=== PATIENT | male | born 1950 | race Caucasian/White ===

== ENCOUNTER 2022-03-17 11:37 | Emergency (ER) | payer OTHER ==
[2022-03-17 12:07] VITALS: BP 144/62; PULSE 64; TEMP 98; BMI 25.8
[2022-03-17] MEDS ORDERED: KETOROLAC TROMETHAMINE 30 MG/1 ML VIAL IVPUSH ONE (13:22)
[2022-03-17] MEDS ORDERED: SODIUM CHLORIDE 0.9% 500 ML INFUS.BAG IV ONE (13:22)
[2022-03-17] MEDS ORDERED: ONDANSETRON 4 MG/2 ML VIAL IVPUSH ONE (13:23)
[2022-03-17] MEDS ORDERED: KETOROLAC TROMETHAMINE 30 MG/1 ML VIAL ONE (13:26)
[2022-03-17] MEDS ORDERED: ONDANSETRON 4 MG/2 ML VIAL ONE (13:26)
[2022-03-17 14:06] LABS: BASO % 0.5 % (0-2.0); EOS % 2.1 % (0-4.5); HEMATOCRIT 40.4 % (35.4-49); HEMOGLOBIN 13.4 GM/dL (11.7-16.9); LYMPH % 17.3 % (8-40); MCH 31.8 pg (25.7-33.7); MCHC 33.3 g/dl (32.0-35.9); MEAN CELL VOLUME 95.6 fl (80-96); MONO % 8.1 % (3.8-10.2); RBC 4.22 M/mm3 (4.00-5.60); WHITE BLOOD COUNT 10.8 K/mm3 (4.0-10.0)
[2022-03-17 14:08] LABS: PH,URINE 5.5 (5.0-8.0); URINE APPEARANCE CLEAR; URINE BILIRUBIN NEGATIVE (NEGATIVE); URINE COLOR YELLOW; URINE GLUCOSE (UA) NEGATIVE (NEGATIVE); URINE KETONE NEGATIVE (NEGATIVE); URINE LEUK ESTERASE NEGATIVE (NEGATIVE); URINE NITRITE NEGATIVE (NEGATIVE); URINE PROTEIN NEGATIVE (NEGATIVE); URINE UROBILINOGEN 0.2 mg/dL (0.2-1.0)
[2022-03-17 14:14] LABS: CALCIUM 9.4 mg/dL (8.5-10.1)
[2022-03-17 14:15] LABS: BLOOD UREA NITROGEN 27.1 mg/dL (7-18)
[2022-03-17 14:17] LABS: CREATININE 1.1 mg/dL (0.55-1.3)
[2022-03-17 14:18] LABS: BILIRUBIN,TOTAL 1.4 mg/dL (0.2-1)
[2022-03-17 14:20] LABS: TOT PROT 7.1 g/dl (6.4-8.2)
[2022-03-17 14:57] LABS: MEAN PLT VOLUME 7.6 fl (7.5-11.1); PLATELET COUNT 211 10^3/uL (134-434)
== END 2022-03-17 15:48 | disposition home or self-care (01) ==
LOC: JER 11:37
PROC: 3E033GC Introduction of Other Therapeutic Substance into Peripheral Vein, Percutaneous Approach (ICD-10-PCS; principal; 2022-03-17)
DX: M54.6 Pain in thoracic spine (principal)
CPT/HCPCS: 36415; 74176-TC; 80053; 81003; 85025; 87086; 99285-25